=== PATIENT | female | born 1960 | race American Indian/Alaskan Native ===

== ENCOUNTER 2017-10-20 16:11 | Outpatient (CLI) | payer OTHER ==
--- NOTE | 2017-10-20 16:37 | XRay Report ---
AP and lateral lumbar spine: Pain. Anterior subtraction spurs are present at L3-4 with good preservation of interspace. Traction spurs are also present anteriorly and posteriorly at L4-5 with seemingly narrowed interspace but the interspace is not optimally imaged. There is also suspicion of a mild anterior L4 subluxation. No evidence of spondylolysis. The bones are well mineralized and the vertebral height is maintained. Impression: Degenerative bone and disc changes with questionable subluxation at L4-5.
== END 2017-10-20 16:12 | disposition home or self-care (01) ==
LOC: SPVIMAG 16:11
DX: M47.896 Other spondylosis, lumbar region (principal)
CPT/HCPCS: 72100